=== PATIENT | male | born 1950 | race Caucasian/White ===

== ENCOUNTER 2020-04-26 16:25 | Emergency (ER) | payer MEDICARE ==
[~2020-04-26] VITALS: Ht 175.3 cm; Wt 99.8 kg
[2020-04-26] MEDS ORDERED: GOLYTELY SOLU4000 ML PO (19:09)
[2020-04-26] MEDS ORDERED: LACTULOSE20 GM/30 M PO (19:15)
[2020-04-26 19:28] VITALS: BP 134/97
== END 2020-04-26 19:29 | disposition home or self-care (01) ==
LOC: FSED 17:16
DX: K59.00 Constipation, unspecified (principal)
CPT/HCPCS: 74176; 80053; 85025; 99283

== ENCOUNTER → 2020-06-25 | Day surgery (SDC) | payer MEDICARE ==
[~2020-06-25] MED LIST: CRESTOR10 MG PO; FENTANYL CITRATE/PF 100MCG/2 ML INJ ONE; FLOMAX0.4 MG PO; GOLYTELY SOLU4000 ML PO; LACTULOSE20 GM/30 M PO; LIDOCAINE HCL 2% LOCAL INJ 5 ML SDV VIAL INJ ONE; LOSARTAN POTASS25 MG PO; MIDAZOLAM HCL 2 MG/2 ML VIAL ONE; OSTEO BI-FLEX1 EAC2 PO; PROPOFOL IV EMULSION 10 MG/ML 20 ML VIAL ONE
[2020-06-25 10:14] VITALS: BP 123/70
== END | disposition home or self-care (01) ==
LOC: OR 06:56
PROVIDERS: ATTEND Internal Medicine Gastroenterology
DX: Z12.11 Encounter for screening for malignant neoplasm of colon (principal); D12.2 Benign neoplasm of ascending colon; R93.5 Abnormal findings on diagnostic imaging of other abdominal regions, including retroperitoneum; K57.30 Diverticulosis of large intestine without perforation or abscess without bleeding; K64.8 Other hemorrhoids; K59.00 Constipation, unspecified; M19.90 Unspecified osteoarthritis, unspecified site; I10 Essential (primary) hypertension; E78.5 Hyperlipidemia, unspecified; R00.1 Bradycardia, unspecified; Z01.810 Encounter for preprocedural cardiovascular examination; Z01.812 Encounter for preprocedural laboratory examination; Z20.822 Contact with and (suspected) exposure to COVID-19; Z68.31 Body mass index [BMI] 31.0-31.9, adult
CPT/HCPCS: 45380; 88305; 93005; J2001; J2250; J2704; J3010; U0002; 45378; 45384